=== PATIENT | female | born 1980 | race Caucasian/White ===

== ENCOUNTER 2025-03-27 23:04 | Emergency (ER) | payer OTHER, MEDICARE, SELFPAY ==
[2025-03-27 23:09] VITALS: BP 162/98
[2025-03-28] MEDS: TYLENOL 1000 MG PO (01:30)
[2025-03-28 01:49] LABS: Hematocrit 33.0 % (37.0-47.0); Hemoglobin 12.0 g/dL (12.0-16.0); Mean Corp Hgb Conc. 36.4 g/dL (33.0-37.0); Mean Corpuscular Volume 91.9 fL (81.0-99.0); Platelet Count 295 10^3/uL (130-400); Red Cell Dist. Width 12.3 % (11.5-14.5)
[2025-03-28 01:53] LABS: HCG, Urine Qualitative Screen Negative
[2025-03-28 02:11] LABS: ALT (SGPT) 11 U/L (0-35); AST (SGOT) 17 U/L (14-36); Acetaminophen < 10 ug/ml (10-30); Albumin 3.8 g/dl (3.5-5.0); Alkaline Phosphatase 31 U/L (38-126); Blood Urea Nitrogen 13 mg/dl (7-17); Calcium 9.3 mg/dl (8.4-10.2); Carbon Dioxide 26 mmol/L (22-30); Chloride 107 mmol/L (98-107); Glucose 99 mg/dl (70-99); Potassium 3.9 mmol/L (3.5-5.1); Salicylate < 1.0 mg/dl (2.0-20.0); Sodium 140 mmol/L (135-145); Total Protein 5.9 g/dl (6.3-8.2); eGFR > 60.00
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
[2025-03-28] MEDS: MORPHINE ORAL SOLUTION 10 MG PO (08:17)
[2025-03-28] MEDS: NEURONTIN 1200 MG PO (08:18)
[2025-03-28] MEDS: FOLVITE 1 MG PO (08:18)
[2025-03-28] MEDS: LIORESAL 10 MG PO (08:18)
[2025-03-28] MEDS: PROTONIX 10 MG PO (08:18)
[2025-03-28] MEDS: CYMBALTA DELAYED RELEASE 80 MG PO (09:16)
[2025-03-28 09:44] VITALS: BP 126/86
== END 2025-03-28 10:19 ==
LOC: EMR 23:04
PROVIDERS: EMERGENCY PHYSICIAN Emergency Medicine
DX: F32.A Depression, unspecified (principal); Z91.51 Personal history of suicidal behavior
CPT/HCPCS: 99283; 80053; 80143; 80179; 80306; 80307; 81025; 82077; 85027